=== PATIENT | male | born 1930 | race Caucasian/White ===

== ENCOUNTER 2017-12-19 00:05 | Inpatient (IN) | payer MEDICARE, MEDICAID, OTHER ==
[~2017-12-19] VITALS: Ht 170.1 cm; Wt 87.0 kg
[2017-12-19] VITALS (15 sets, daily range): BP systolic 90–145; BP diastolic 57–91
--- NOTE | ~2017-12-19 | CON ---
[place], [place] REPORT OF CONSULTATION NAME: DENISHA BAIRES UNIT #: [id number] ROOM: 525 DOCTOR: SULEMA MCLEAN MD BIRTHDATE: [birth year] DOS: 12/19/2017 CARDIOLOGY CONSULTATION REASON FOR CONSULTATION: Tachycardia. HISTORY OF PRESENT ILLNESS: The patient is an 87-year-old patient with severe dementia, was brought to the Emergency Room via ambulance from [facility] because of his mental status and also medical evaluation for admission to Behavioral Health Unit. The patient is unable to give any history. History is obtained from the chart as well as his family member, daughter, Judith, who is at bedside and he was found to be tachycardic in the Emergency Room and he was treated with medications including intravenous Cardizem and Cardiology consult for further recommendations. At the time of examination, the patient is alert. He is mostly non-communicative, unable to assess any history from him, but no acute distress. PAST MEDICAL HISTORY: Per discussion with his daughter, the patient has a history of: 1. Coronary artery disease, status post bypass about 30 years ago, history of stents. After that, the recent stent was about 15 years ago. 2. History of pacemaker about 2 years ago. 3. Hypertension. 4. Possible atrial fibrillation few years ago. 5. Dementia. PAST SURGICAL HISTORY: History of bypass surgery about 30 years ago, pacemaker insertion about 2 years ago. ALLERGIES AND MEDICATIONS: Reviewed. FAMILY HISTORY: Noncontributory due to his age. SOCIAL HISTORY: The patient does not smoke or drink. No illicit drugs. PHYSICAL EXAMINATION: VITAL SIGNS: Blood pressure 112/78, pulse 86, respiratory rate 20, weight 74.8 kilos, BMI 25.9. GENERAL: The patient is alert, in no acute distress. The patient mostly non-communicative. HEENT: Pupils are round. No jaundice. NECK: Supple, no distended neck veins, no carotid bruit. CHEST: Chest wall symmetrical. Pacemaker is unremarkable near the left infraclavicular area. LUNGS: Few scattered rhonchi. HEART: Irregular, grade 2/6 systolic murmur. No S3, no palpable thrills. ABDOMEN: Nontender. Bowel sounds normal. EXTREMITIES: Showed trace edema. Distal pulses palpable. SKIN: Warm and dry. No cyanosis, no clubbing. RECTAL: Deferred. [place], [place] REPORT OF CONSULTATION NAME: DENISHA BAIRES UNIT #: [id number] ROOM: 525 DOCTOR: VINAY MOELLER,SULEMA BIRTHDATE: [birth year] GENITOURINARY: Deferred. NEUROLOGIC: Unable to assess due to the patient's mental status. MUSCULOSKELETAL: Limited exam, but no joint tenderness or weakness. REVIEW OF THE DIAGNOSTIC TESTS: EKG showed supraventricular tachycardia, rate of 169 with underlying right bundle branch block. Pertinent labs include hemoglobin 12.1, WBC 8.7 thousand, platelets 160,000. TSH 2.3, T4 of 0.8. Potassium 4.1, magnesium 2.2, creatinine 1.0. Cardiac troponin is normal. IMPRESSION: 1. Paroxysmal supraventricular tachycardia, resolved. 2. Paroxysmal atrial fibrillation, currently rate controlled on his IV Cardizem. 3. Coronary artery disease, status post bypass surgery about 30 years ago, history of stents over 10-15 years ago. 4. Status post pacemaker 2 years ago. 5. Right bundle branch block. 6. Dementia. 7. History of hypertension. RECOMMENDATIONS: 1. Wean off his IV Cardizem and increase metoprolol to 25 twice a day and monitor his heart rate and blood pressures. 2. Give digoxin 0.25 mg IV x 1 dose for rate control. 3. I had a long discussion with his daughter, Judith, who is at bedside. His CHADS2-VASc score is 4 and the risks and benefits of oral anticoagulation discussed and she would like to discuss it with other family members and let me know if they want him to be on long-term anticoagulation. 4. If the blood pressure and heart rates are stable, he can be discharged home from the cardiac standpoint to Behavioral Health Unit. 5. Decision regarding oral anticoagulation will be decided tomorrow as per his family decision. SULEMA MCLEAN MD CM:CONSTR:REPORT OF CONSULTATION 51 12/20/17 0254 interface
--- NOTE | ~2017-12-19 | PR ---
[place], [place] PROGRESS NOTE NAME: DENISHA BAIRES UNIT #: [id number] ROOM: 525 DOCTOR: VINAY MOELLER,MANJEETKareen BIRTHDATE: [birth year] DOS: 12/20/2017 REASON FOR VISIT: Atrial fibrillation. HISTORY OF PRESENT ILLNESS: The patient is resting comfortably, alert, no acute distress. The patient mostly nonverbal and noncommunicative, hence unable to assess any history. REVIEW OF SYSTEMS: Eight systems are incomplete due to patient's mental status. RHYTHM STRIPS: The patient in sinus rhythm. PHYSICAL EXAMINATION: VITAL SIGNS: Blood pressure 91/69, pulse 95, respiration was 18, weight 86.4 kilos, temperature 100.6. GENERAL: The patient is alert, comfort, no acute distress. HEENT: Pupils are round and equal. Tongue was moist. NECK: Supple, no distended neck veins. CHEST: Symmetrical. LUNGS: A few scattered rhonchi, but good air entry bilaterally. HEART: Regular rhythm, no S3. Grade 1/6 systolic murmur. ABDOMEN: Benign, nontender. Bowel sounds normal. EXTREMITIES: Showed 1+ edema. Distal pulses are palpable. SKIN: Warm and dry. No cyanosis, no clubbing. RECTAL: Deferred. GENITOURINARY: Deferred. MEDICATIONS AND ALLERGIES: Reviewed. IMPRESSION: 1. Atrial fibrillation with rapid ventricular rate, currently sinus rhythm. The patient had high CHADS2-VASc score. 2. History of coronary artery disease, status post bypass surgery several years ago. 3. Status post pacemaker. 4. Hypertension. 5. Dementia with behavioral changes. RECOMMENDATIONS: 1. I will discontinue IV Cardizem. 2. We will continue beta blockers. 3. We will watch heart rate and blood pressures. 4. No family at bedside and family will let us know if they would like him to be on a long-term oral anticoagulation. If the family agree with anticoagulation, I would recommend Eliquis. 5. He can be either discharged or transferred to [facility] from the cardiac standpoint. 6. Cardiology will sign off and will see as needed. [place], [place] PROGRESS NOTE NAME: DENISHA BAIRES UNIT #: [id number] ROOM: 525 DOCTOR: SULEMA MCLEAN MD BIRTHDATE: [birth year] SULEMA MCLEAN MD CM:PNTRANS [id number] SULEMA MCLEAN MD 12/20/17 2300 interface
[2017-12-19] MEDS ORDERED: METOPROLOL SUCC25 M2 PO (00:21)
[2017-12-19] MEDS ORDERED: ARICEPT10 M1 PO ×2 (00:22→12:21)
[2017-12-19] MEDS ORDERED: MULTIVITAMINS1 EAC5 PO (00:22)
[2017-12-19] MEDS ORDERED: DEPAKOTE SPRIN125 MG PO ×2 (00:23→12:22)
[2017-12-19] MEDS ORDERED: RISPERDAL0.5 MG PO ×2 (00:25→12:22)
[2017-12-19] MEDS ORDERED: VITAMIN D400 UNI1 PO (00:25)
[2017-12-19 00:26] LABS: BASO % 0.5 % (0.0-1.0); EOS # 0.1 10*3/uL (0.0-0.4); EOS % 1.3 % (1.0-4.0); HEMATOCRIT 39.6 % (42.0-52.0); HEMOGLOBIN 12.7 g/dl (14.0-18.0); LYMPH # 2.2 10*3/uL (1.3-4.4); MEAN CELL VOLUME 100.8 fl (80.0-94.0); MEAN CORPUSCULAR HGB 32.3 pg (27.0-31.0); MEAN CORPUSCULAR HGB CONC 32.1 g/dl (33.0-37.0); MEAN PLATELET VOLUME 11.1 fl (9.6-12.3); MONO # 1.4 10*3/uL (0.1-1.0); MONO % 18.1 % (3.0-9.0); NEUT # 3.9 10*3/uL (2.3-7.9); NEUT % 50.8 % (47.0-73.0); PLATELET COUNT AUTOMATED 173 10*3/uL (130-400); RED BLOOD COUNT 3.93 10*6/uL (4.50-5.90); RED CELL DISTRI WIDTH 14.9 % (0-14.5); WHITE BLOOD COUNT 7.6 10*3/uL (4.8-10.8)
[2017-12-19] MEDS ORDERED: CYMBALTA60 MG PO ×2 (00:26→12:23)
[2017-12-19] MEDS ORDERED: SENOKOT-S TABL1 EACH PO (00:27)
[2017-12-19] MEDS ORDERED: SYNTHROID25 MCG PO (00:27)
[2017-12-19] MEDS ORDERED: K-TAB10 MEQ PO (00:29)
[2017-12-19] MEDS ORDERED: ISORDIL20 MG PO (00:29)
[2017-12-19] MEDS ORDERED: ASPIR LOW81 MG PO (00:30)
[2017-12-19 00:39] LABS: BUN 32 mg/dl (7-24); CHLORIDE 110 mmol/L (98-107); CREATININE 1.15 mg/dL (0.70-1.30); POTASSIUM 4.8 mmol/L (3.5-5.1); SODIUM 145 mmol/L (136-145)
[2017-12-19 00:44] LABS: ACETAMINOPHEN (TYLENOL) < 2.0 ug/ml (10-30); ETHYL ALCOHOL < 3.0 mg/dl (<3)
[2017-12-19 06:08] LABS: BASO % 0.5 % (0.0-1.0); EOS # 0.1 10*3/uL (0.0-0.4); EOS % 0.6 % (1.0-4.0); HEMATOCRIT 38.4 % (42.0-52.0); HEMOGLOBIN 12.1 g/dl (14.0-18.0); LYMPH # 1.5 10*3/uL (1.3-4.4); LYMPH % 16.7 % (27.0-41.0); MEAN CELL VOLUME 100.3 fl (80.0-94.0); MEAN CORPUSCULAR HGB 31.6 pg (27.0-31.0); MEAN CORPUSCULAR HGB CONC 31.5 g/dl (33.0-37.0); MONO # 1.1 10*3/uL (0.1-1.0); MONO % 13.1 % (3.0-9.0); NEUT % 68.9 % (47.0-73.0); PLATELET COUNT AUTOMATED 163 10*3/uL (130-400); RED BLOOD COUNT 3.83 10*6/uL (4.50-5.90); WHITE BLOOD COUNT 8.7 10*3/uL (4.8-10.8)
[2017-12-19 06:11] LABS: ALBUMIN 2.3 gm/dl (3.1-4.5); ALKALINE PHOSPHATASE 88 U/L (45-117); BUN 29 mg/dl (7-24); CHLORIDE 109 mmol/L (98-107); CHOLESTEROL 149 mg/dL (<200); HDL CHOLESTEROL 37 mg/dl (40-60); LDL CHOLESTEROL 102 mg/dL (9-159); PHOSPHOROUS 3.7 mg/dL (2.5-4.9); POTASSIUM 4.1 mmol/L (3.5-5.1); SGOT/AST 14 IU/L (3-35); SGPT/ALT 12 U/L (12-78); SODIUM 144 mmol/L (136-145); TOTAL PROTEIN 6.7 gm/dL (6.4-8.2); TRIGLYCERIDES 49 mg/dl (<150); TROPONIN I < 0.015 ng/ml (<0.045); VLDL CHOLESTEROL 10 mg/dL (6-40)
[2017-12-19 06:26] LABS: ACT PARTIAL THROMBO TIME 26.7 SECONDS (20.8-31.5); INTERNATIONAL NORM RATIO 1.1 (2.0-3.5)
[2017-12-19 08:23] LABS: VITAMIN D, 25-HYDROXY 37.5 ng/mL (30-100)
[2017-12-19 10:32] LABS: BILIRUBIN NEGATIVE (NEGATIVE); BLOOD NEGATIVE (NEGATIVE); CLARITY CLOUDY (CLEAR); COLOR YELLOW (YELLOW); GLUCOSE NEGATIVE (NEGATIVE); KETONE NEGATIVE (NEGATIVE); LEUKO ESTERASE NEGATIVE (NEGATIVE); NITRITE NEGATIVE (NEGATIVE); PH 7.5 (5.0-9.0)
[2017-12-19 10:48] LABS: URINE AMPHETAMINES < 1000 (1000ng/ml); URINE BARBITURATES < 200 (200ng/ml); URINE BENZODIAZEPINES < 200 (200ng/ml); URINE CANNABINOIDS (THC) < 50 (50ng/ml); URINE COCAINE < 300 (300ng/ml); URINE METHADONE < 300 (300ng/ml); URINE OPIATES < 300 (300ng/ml)
[2017-12-19 10:50] LABS: WBC 0-2 wbc/hpf (0-5)
[2017-12-19 10:53] LABS: URINE PHENCYCLIDINE < 25 (25ng/ml)
[2017-12-20] VITALS: BP 91/69
[2017-12-20 08:00] VITALS: BP 119/59; BP 134/65
[2017-12-20 16:00] VITALS: BP 123/62
[2017-12-20 20:00] VITALS: BP 106/63
[2017-12-21] VITALS: BP 141/86
[2017-12-21] MEDS ORDERED: TOPROL XL50 M1 PO (13:28)
[2017-12-21] MEDS ORDERED: ELIQUIS5 M1 PO (13:28)
[2017-12-22] MEDS ORDERED: ATIVAN1 MG PO (06:38)
[2017-12-22] MEDS ORDERED: ATIVAN ORAL C2 MG/ML PO (06:39)
[2017-12-22] MEDS ORDERED: GEODON20 M1 IM (06:40)
== END 2017-12-21 14:26 | disposition home health service (06) | DRG 308 ==
LOC: ED 00:05 → EDHOLD 02:58 → 5E 02:58
PROVIDERS: Emergency Medicine; Family Medicine
DX: I48.0 Paroxysmal atrial fibrillation (principal); E43 Unspecified severe protein-calorie malnutrition; F02.81 Dementia in other diseases classified elsewhere, unspecified severity, with behavioral disturbance; G30.9 Alzheimer's disease, unspecified; D53.9 Nutritional anemia, unspecified; E87.8 Other disorders of electrolyte and fluid balance, not elsewhere classified; I45.10 Unspecified right bundle-branch block; I47.1 Supraventricular tachycardia; Z66 Do not resuscitate; Z51.5 Encounter for palliative care; I10 Essential (primary) hypertension; I25.10 Atherosclerotic heart disease of native coronary artery without angina pectoris; E03.9 Hypothyroidism, unspecified; Z96.653 Presence of artificial knee joint, bilateral; R73.9 Hyperglycemia, unspecified; E83.51 Hypocalcemia; E83.41 Hypermagnesemia; Z79.899 Other long term (current) drug therapy; Z79.82 Long term (current) use of aspirin; Z95.0 Presence of cardiac pacemaker; Z90.49 Acquired absence of other specified parts of digestive tract; Z95.1 Presence of aortocoronary bypass graft; Z82.49 Family history of ischemic heart disease and other diseases of the circulatory system; Z68.36 Body mass index [BMI] 36.0-36.9, adult

== ENCOUNTER 2017-12-21 12:07 | Inpatient (IN) | payer MEDICARE, MEDICAID ==
[~2017-12-21] VITALS: Ht 177.8 cm; Wt 86.2 kg
--- NOTE | ~2017-12-21 | CON ---
[place], [place] REPORT OF CONSULTATION NAME: DENISHA BAIRES UNIT #: [id number] ROOM: 309 DOCTOR: SULEMA MCLEAN MD BIRTHDATE: [birth year] DOS: 12/22/2017 CARDIOLOGY CONSULT REASON FOR CONSULTATION: Atrial fibrillation, rapid ventricular rate. CLINICAL HISTORY: The patient an 87-year-old gentleman with history of paroxysmal atrial fibrillation, coronary artery disease, pacemaker, hypertension, was admitted from [facility] because of atrial fibrillation with rapid ventricular rate. Apparently, he was discharged from the [facility] on the 12/21/2017 and was transferred to Behavioral Health Unit and he was readmitted to the hospital for tachycardia. Apparently, the patient has not been taking his oral medications due to his mental status. History was obtained from the chart and the family member since the patient unable to give any history. History of coronary artery disease, bypass surgery, pacemaker insertion and recently started on Eliquis during his admission to [facility] a few days ago. REVIEW OF SYSTEMS: Review of the 10 systems are limited due to the patient's mental status. PAST MEDICAL HISTORY: 1. Coronary artery disease, status post bypass surgery. 2. Status post pacemaker. 3. Paroxysmal atrial fibrillation. 4. Dementia with behavioral changes. 5. Hypertension. 6. Hypothyroidism. 7. Macrocytic anemia. PAST SURGICAL HISTORY: History of bypass surgery, pacemaker, knee replacement, cholecystectomy. SOCIAL HISTORY: The patient does not smoke or drink, does not use illicit drugs. FAMILY HISTORY: Nil contributory due to his age. ALLERGIES: THE PATIENT IS ALLERGIC TO SULFA AND SULFASALAZINE. CURRENT MEDICATIONS: Reviewed. PHYSICAL EXAMINATION: GENERAL: The patient is no acute distress, resting comfortably, and unable to answer any questions and mostly noncommunicative. VITAL SIGNS: Blood pressure 125/80, pulse 136, respiratory rate 18, weight 87.9 kilos, BMI 36. GENERAL: The patient resting comfortably, in no acute distress, mostly noncommunicative. HEAD AND NECK: Supple. No distended neck veins. No carotid bruit. [place], [place] REPORT OF CONSULTATION NAME: DENISHA BAIRES UNIT #: [id number] ROOM: 309 DOCTOR: SULEMA MCLEAN MDTE: 30 CHEST: Symmetrical. Pacemaker is unremarkable. LUNGS: Few scattered rhonchi. HEART: Irregularly irregular. The patient is tachycardic, grade 1/6 systolic murmur. No palpable thrills. ABDOMEN: Bowel sounds normal. No palpable masses. EXTREMITIES: Showed no edema. Distal pulses are palpable. SKIN: Warm and dry. No cyanosis, no clubbing. RECTAL: Deferred. GENITOURINARY: Deferred. NEUROLOGIC: Unable to assess due to patient's mental status. MUSCULOSKELETAL: No joint tenderness or swelling. REVIEW OF THE DIAGNOSTIC TESTS: EKG showed atrial fibrillation with rapid ventricular rate. The pertinent labs from 12/19/2017 include a potassium 4.1, creatinine 1.0, magnesium 2.2. TSH was normal. T4 is normal. Hemoglobin 12.1, platelets 163. The troponins are negative x 2. IMPRESSION: 1. Atrial fibrillation with rapid ventricular rate. 2. History of coronary artery disease, status post bypass surgery. 3. History of pacemaker. 4. Hypertension. 5. Dementia with some behavioral problems. RECOMMENDATIONS: 1. I would add digoxin IV for rate control. 2. Continue IV Cardizem and titrate for his heart rate and blood pressures. 3. I would discontinue aspirin since he was on Eliquis. 4. Resume his beta natalia, metoprolol, change it to metoprolol tartrate 25 mg twice a day. 5. Above treatment discussed with the patient's daughter, Judith, who is at bedside. 6. Conservative medical therapy. 7. Continue his Eliquis for anticoagulation. SULEMA MCLEAN MD CM:CONSTR:REPORT OF CONSULTATION 1057 01/30/18 0733 interface
[~2017-12-21 12:07] MED LIST: ARICEPT10 M1 PO; ASPIR LOW81 MG PO; CYMBALTA60 MG PO; DEPAKOTE SPRIN125 MG PO; ISORDIL20 MG PO; K-TAB10 MEQ PO; METOPROLOL SUCC25 M2 PO; MULTIVITAMINS1 EAC5 PO; RISPERDAL0.5 MG PO; SENOKOT-S TABL1 EACH PO; SYNTHROID25 MCG PO; VITAMIN D400 UNI1 PO
[2017-12-21] MEDS ORDERED: ELIQUIS5 M1 PO (13:28)
[2017-12-21] MEDS ORDERED: TOPROL XL50 M1 PO (13:28)
[2017-12-21 14:31] VITALS: BP 128/78
[2017-12-21 18:59] VITALS: BP 140/80
[2017-12-21 20:00] VITALS: BP 125/72
[2017-12-22] MEDS ORDERED: ATIVAN1 MG PO (06:38)
[2017-12-22] MEDS ORDERED: ATIVAN ORAL C2 MG/ML PO (06:39)
[2017-12-22] MEDS ORDERED: GEODON20 M1 IM (06:40)
== END 2017-12-22 06:46 | disposition short-term general hospital (02) | DRG 57 ==
LOC: 3N 12:07
DX: G30.9 Alzheimer's disease, unspecified (principal); F02.81 Dementia in other diseases classified elsewhere, unspecified severity, with behavioral disturbance; I48.0 Paroxysmal atrial fibrillation; F63.81 Intermittent explosive disorder; D53.9 Nutritional anemia, unspecified; E03.9 Hypothyroidism, unspecified; Z96.659 Presence of unspecified artificial knee joint; I10 Essential (primary) hypertension; I25.10 Atherosclerotic heart disease of native coronary artery without angina pectoris; E55.9 Vitamin D deficiency, unspecified; Z95.0 Presence of cardiac pacemaker; Z90.49 Acquired absence of other specified parts of digestive tract; Z88.2 Allergy status to sulfonamides; Z88.8 Allergy status to other drugs, medicaments and biological substances; Z95.1 Presence of aortocoronary bypass graft

== ENCOUNTER 2017-12-22 06:49 | Inpatient (IN) | payer MEDICARE, MEDICAID ==
[2017-12-22] VITALS (8 sets, daily range): BP systolic 94–125; BP diastolic 67–91
[~2017-12-22] VITALS: Ht 154.9 cm; Wt 87.7 kg
--- NOTE | ~2017-12-22 | PR ---
[place], [place] PROGRESS NOTE NAME: DENISHA BAIRES UNIT #: [id number] ROOM: 508 DOCTOR: SULEMA MCLEAN MD BIRTHDATE: [birth year] DOS: 12/23/2017 CARDIOLOGY FOLLOWUP VISIT NOTE REASON FOR VISIT: Atrial fibrillation with rapid ventricular rate. SUBJECTIVE: The patient is alert, no acute distress. The patient was noncommunicative. REVIEW OF SYSTEMS: Limited due to patient's mental status. RHYTHM STRIPS: The patient in sinus rhythm. PHYSICAL EXAMINATION: VITAL SIGNS: Blood pressure 98/77, pulse 72, respiratory rate 16. GENERAL: Alert, comfort, no acute distress. HEENT: Pupils are round and equal. No jaundice. Tongue was dry. CHEST: Symmetrical. LUNGS: A few scattered rhonchi. HEART: Regular rhythm, no S3, grade 1/6 systolic murmur. ABDOMEN: Bowel sounds normal. EXTREMITIES: Showed no edema. Distal pulses palpable. SKIN: Warm and dry. No cyanosis, no clubbing. RECTAL: Deferred. NEUROLOGIC: Limited due to patient's mental status. His medications, allergies, rhythm, and labs reviewed. IMPRESSION: 1. Paroxysmal atrial fibrillation with rapid ventricular rate, currently in sinus rhythm. 2. History of coronary artery disease, status post bypass surgery long time ago. 3. History of pacemaker insertion, a few years ago. 4. Dementia. 5. Behavioral change with underlying dementia. RECOMMENDATIONS: 1. Wean off and discontinue IV Cardizem. 2. If the patient does not take his oral medications, would recommend IV Lopressor and IV digoxin as needed. 3. The patient was on Eliquis anticoagulation, but he keeps declining oral medications. 4. He can be transferred to Behavioral Health Unit from the cardiac standpoint and continue current cardiac medications. 5. There is no family at bedside at the time of my examination. 6. Cardiology will sign off. Please call us if needed. [place], [place] PROGRESS NOTE NAME: DENISHA BAIRES UNIT #: [id number] ROOM: 508 DOCTOR: SULEMA MCLEAN MD BIRTHDATE: [birth year] SULEMA MCLEAN MD CM:PNTRANS [id number] SULEMA MCLEAN MD 12/24/17 0156 interface
--- NOTE | ~2017-12-22 | CON ---
[place], [place] REPORT OF CONSULTATION NAME: DENISHA BAIRES UNIT #: [id number] ROOM: 508 DOCTOR: KM ALVAREZ MD BIRTHDATE: [birth year] DOS: 12/23/2017 PSYCHIATRIC CONSULTATION CHIEF COMPLAINT: "I have been here for a couple of weeks talk." SUMMARY OF THE VISIT: This is an 87-year-old white male, who is a resident of [facility] in [place], [place]. The patient had become increasingly agitated and aggressive at the facility and then was to be admitted to the [facility]; however, he was sent through the Emergency Room at [facility] for medical clearance and was found to be in atrial fibrillation with rapid ventricular response. He has been stabilized with a Cardizem drip, but continues to have episodic periods of agitation. PAST MEDICAL HISTORY: Remarkable for atrial fib, coronary artery disease, Alzheimer dementia, hypertension, hypothyroidism, macrocytic anemia, renal calculi, vitamin D deficiency. SOCIAL HISTORY: He does not drink alcohol, smoke or use illicit drugs. ALLERGIES: He lists allergies TO SULFA. MENTAL STATUS: The patient is alert and oriented to self, possibly place and he knows he is in the hospital. He does report that he feels he has been here for weeks and he did state that he came from an assisted living facility. His responses tended to be very short and simple and whisper like, often x 1 or 2 words were his response. He does appear depressed and confused. I see no agitation, aggression or autumn. He does process conversation slowly and sparse responses are the norm. Short term memory is problematic. DIAGNOSIS: Major depression, recurrent and Alzheimer's dementia. PLAN: I will go ahead and discontinue Cymbalta in lieu of Remeron. He doesn't even with an aid present seem to be eating much and is requiring a great deal of redirection to get him to engage in eating. I will also stop the Aricept. Aricept can affect cardiac muscle and has been associated with cardiac arrhythmias. I will instead substitute Exelon patch, which does not affect any cardiac issues starting at 4.6 mg a day. This can be maintained and once he is back at [facility], I can follow him and we can increase the Exelon patch as needed. Maintain his Depakote at the present level and maintain Risperdal at its current level. At this point, I would give the medication changes a day or two and then he can be discharged back to [facility] where I will follow him upon his readmission there. [place], [place] REPORT OF CONSULTATION NAME: DENISHA BAIRES UNIT #: [id number] ROOM: 508 DOCTOR: KM ALVAREZ MD BIRTHDATE: [birth year] KM ALVAREZ MD CM:CONSTR:REPORT OF CONSULTATION 0942 01/30/18 1435 interface
[~2017-12-22 06:49] MED LIST changes: +ATIVAN ORAL C2 MG/ML PO; +ATIVAN1 MG PO; +ELIQUIS5 M1 PO; +GEODON20 M1 IM; +TOPROL XL50 M1 PO
[2017-12-22 14:39] LABS: BUN 14 mg/dl (7-24); CHLORIDE 108 mmol/L (98-107); CREATININE 0.74 mg/dL (0.70-1.30); POTASSIUM 3.8 mmol/L (3.5-5.1); SODIUM 141 mmol/L (136-145)
[2017-12-23] VITALS (12 sets, daily range): BP systolic 90–107; BP diastolic 48–74
[2017-12-23 06:29] LABS: BASO % 0.4 % (0.0-1.0); EOS # 0.2 10*3/uL (0.0-0.4); EOS % 2.7 % (1.0-4.0); HEMATOCRIT 40.4 % (42.0-52.0); HEMOGLOBIN 13.1 g/dl (14.0-18.0); LYMPH # 1.8 10*3/uL (1.3-4.4); LYMPH % 25.5 % (27.0-41.0); MEAN CELL VOLUME 99.3 fl (80.0-94.0); MEAN CORPUSCULAR HGB 32.2 pg (27.0-31.0); MEAN CORPUSCULAR HGB CONC 32.4 g/dl (33.0-37.0); MEAN PLATELET VOLUME 10.9 fl (9.6-12.3); MONO # 1.1 10*3/uL (0.1-1.0); MONO % 14.8 % (3.0-9.0); NEUT % 56.3 % (47.0-73.0); PLATELET COUNT AUTOMATED 190 10*3/uL (130-400); RED BLOOD COUNT 4.07 10*6/uL (4.50-5.90); WHITE BLOOD COUNT 7.1 10*3/uL (4.8-10.8)
[2017-12-23 06:37] LABS: ACT PARTIAL THROMBO TIME 24.8 SECONDS (20.8-31.5); INTERNATIONAL NORM RATIO 1.1 (2.0-3.5)
[2017-12-23 07:07] LABS: BUN 14 mg/dl (7-24); CHLORIDE 107 mmol/L (98-107); CREATININE 0.77 mg/dL (0.70-1.30); PHOSPHOROUS 2.7 mg/dL (2.5-4.9); POTASSIUM 3.4 mmol/L (3.5-5.1); SODIUM 142 mmol/L (136-145)
[2017-12-24] VITALS (9 sets, daily range): BP systolic 90–106; BP diastolic 48–80
[2017-12-24 09:07] LABS: BUN 17 mg/dl (7-24); CHLORIDE 110 mmol/L (98-107); CREATININE 0.81 mg/dL (0.70-1.30); POTASSIUM 3.7 mmol/L (3.5-5.1); SODIUM 145 mmol/L (136-145)
[2017-12-25] VITALS: BP 108/57
[2017-12-25 08:00] VITALS: BP 110/56
[2017-12-25 16:00] VITALS: BP 95/76
[2017-12-25 20:00] VITALS: BP 130/80
[2017-12-26] VITALS: BP 135/71
[2017-12-26 08:00] VITALS: BP 115/72
[2017-12-26 12:00] VITALS: BP 116/64
[2017-12-26] MEDS ORDERED: Lanoxin PO (13:17)
[2017-12-26] MEDS ORDERED: LOPRESSOR25 MG PO (13:17)
[2017-12-26] MEDS ORDERED: RIVASTIGMINE1 EACH T (13:17)
[2017-12-26] MEDS ORDERED: MIRTAZAPINE15 M2 PO (13:17)
[2017-12-26] MEDS ORDERED: ATIVAN1 MG PO (13:17)
[2017-12-26 16:00] VITALS: BP 125/64
== END 2017-12-26 20:24 | disposition other institution (70) | DRG 309 ==
LOC: 5E 06:49
PROVIDERS: Internal Medicine; Internal Medicine Nephrology
DX: I48.0 Paroxysmal atrial fibrillation (principal); F02.81 Dementia in other diseases classified elsewhere, unspecified severity, with behavioral disturbance; D53.9 Nutritional anemia, unspecified; G30.9 Alzheimer's disease, unspecified; F33.9 Major depressive disorder, recurrent, unspecified; E03.9 Hypothyroidism, unspecified; F63.81 Intermittent explosive disorder; I10 Essential (primary) hypertension; I25.10 Atherosclerotic heart disease of native coronary artery without angina pectoris; Z66 Do not resuscitate; Z51.5 Encounter for palliative care; E55.9 Vitamin D deficiency, unspecified; Z96.653 Presence of artificial knee joint, bilateral; Z95.0 Presence of cardiac pacemaker; Z90.49 Acquired absence of other specified parts of digestive tract; Z95.1 Presence of aortocoronary bypass graft; Z82.49 Family history of ischemic heart disease and other diseases of the circulatory system; Z88.2 Allergy status to sulfonamides; Z88.1 Allergy status to other antibiotic agents; Z79.82 Long term (current) use of aspirin; Z79.899 Other long term (current) drug therapy